=== PATIENT | female | born 1945 | race Caucasian/White ===

== ENCOUNTER 2020-03-12 10:00 | Outpatient (CLI) | payer MEDICARE, MEDICAID, SELFPAY ==
--- NOTE | 2020-03-12 10:17 | CT_ITS ---
WS: [id number] CT HEAD NONCONTRAST HISTORY: VISION CHANGES FREQUENT FALLS TECHNIQUE: Contiguous axial imaging performed through the brain in 2.5 mm imaging. Bone and soft tiss ue windows. All CT scans at [facility] use at least one of these dose optimization techniq ues: automated exposure control; mA and/or kV adjustment per patient size (includes targeted exams wh ere dose is matched to clinical indication); or iterative reconstruction. DLP: 1628.32 mGycm COMPARISON: 04/19/2019 No acute intracranial hemorrhage, midline shift or mass effect. No atrophy or prior infarcts or herniation. Mild chronic microvascular ischemic disease. Ventricles: Normal size with no hydrocephalus. Paranasal sinuses: As visualized are clear. Mastoid air cells: Well pneumatized. Calvarium and scalp: Hyperostosis frontalis interna. CT/CT head wo con* [id number] IMPRESSION: 1. No acute intracranial hemorrhage or edema. 2. Very mild chronic microvascular ischemic disease.
== END 2020-03-12 10:01 | disposition home or self-care (01) ==
LOC: RADWPI 10:05
PROVIDERS: Family Provider Family Medicine; PCP Family Medicine; Visit Provider Nurse Practitioner Family
DX: R29.6 Repeated falls (principal); I99.8 Other disorder of circulatory system; H53.9 Unspecified visual disturbance
CPT/HCPCS: 70450

== ENCOUNTER 2020-05-07 07:14 | Outpatient (CLI) | payer MEDICARE, MEDICAID, SELFPAY ==
[2020-05-07 07:33] VITALS: BMI 32.3
--- NOTE | 2020-05-07 07:33 | NMCV_ITS ---
NM pedro perf SPECT r/s* [id number] Lisa Loyd Age: 75 Gender: F : 1945 Exam Date: 05/07/2020 08:38 Ordering Phys: Carmina Mcmillan GRINDER Technologist: GUY Lewis Exam Location: [facility] Indications: DYSPNEA STRESS TEST Please see separate stress test report in [facility] for full findings IMAGE PROTOCOL Rest/Stress 1 Lexiscan Day Radiopharmaceutical Dose (mCi) Administration Site Administered by Rest: Tc-99m 10.7 IV GUY Olvera Sestamibi Stress:Tc-99m 32.4 IV GUY Lewis Sestamiguerline Rest: 07-May-2020 60 Discovery 630 Stress: 07-May-2020 30 Discovery 630 0.4mg Lexiscan. Supine position only as patient was unable to lay prone. SPECT RESULTS Technical Quality: Good Raw Data Analysis: Normal Image Corrections: No attenuation or motion correction applied Summed Stress Score: 0 Summed Rest Score: 4 Summed Difference Score: 0 PERFUSION FINDINGS Small sized perfusion abnormality of mild severity of apical lateral, mid inferior and mid inferolateral [place] on rest images with improved tracer uptake on stress images. This is suggestive of attenuation artifact. FUNCTIONAL RESULTS (calculated via Gated SPECT) Stress Image LV EF (%): 85 Stress EDV (mL):59 TID: 1.33 Stress ESV (mL):9 FUNCTIONAL FINDINGS: The left ventricle is normal in size. Transient Ischemia Dilatation of 1.3. There is hyperdynamic left ventricular systolic function. The left ventricular ejection fraction is hyperdynamic with a value of 85%. There is hyperdynamic left ventricular wall thickening. IMPRESSIONS 1. Myocardial perfusion imaging is normal. 2. The left ventricular ejection fraction is hyperdynamic with a value of 85%. No regional wall motion abnormality noted. 3. Transient ischemic dilation index of 1.3. This may be suggestive of hypertensive response/subendocardial ischemia. 4. No coronary ischemia based on the study. Ramona Lea MD (Electronically Signed) Final Date: 07 May 2020 17:58 S
--- NOTE | 2020-05-07 07:33 | ECG_ITS ---
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 Interpretive Statements NAME OF STUDY: LEXISCAN SESTAMIBI STRESS TEST INDICATION: Chest Pain, LEXISCAN STRESS TEST ORDERING PHYSICIAN: Unknown CLINICAL INFORMATION: Unknown INTERPRETATION: 1. The patient was brought to the laboratory where Lexiscan was infused over 20 seconds. The resting blood pressure was 136/54. Maximum blood pressure was 217/67. The resting heart rate was 77 beats per minute. The maximum heart rate is 106 beats per minute. 2. The baseline electrocardiogram reveals sinus rhythm with unusual R wave progression and low voltage. 3. With Lexiscan infusion, there were no ST segment changes to suggest ischemia. 4. The patient experienced no symptoms or arrhythmias during the examination. CONCLUSION: 1. Unremarkable Lexiscan infusion. 2. Nuclear imaging to follow. Electronically Signed On 05-07-2020 10:08:15 CDT by Niranjan Castaneda M.D. [email or web address]
[2020-05-07] MEDS: regadenoson 0.4 Mg/5 ml Syringe IVP (09:28)
[2020-05-07 09:32] VITALS: BP 182/72; PULSE 100
== END 2020-05-07 07:15 | disposition home or self-care (01) ==
LOC: CDL 07:14
PROVIDERS: PCP Family Medicine; Visit Provider Nurse Practitioner Family
DX: R06.09 Other forms of dyspnea (principal); R07.9 Chest pain, unspecified; R94.39 Abnormal result of other cardiovascular function study
CPT/HCPCS: 78452; 93017; A9500; J2785

== ENCOUNTER 2020-05-18 09:50 | Outpatient (CLI) | payer MEDICARE, MEDICAID, SELFPAY ==
--- NOTE | 2020-05-18 09:56 | USCV_ITS ---
Lisa Loyd Age: 75 Gender: F : 1945 Exam Date: 05/18/2020 10:17 Ordering Phys: Carmina McmillanP Technologist: Preet Mitchell [place] [facility] [place]: VISION CHANGES Risk Factors: Previous Vascular Surgery: Right Brachial BP: / Left Brachial BP: / Right Left Velocity (cm/s) Spectral Plaque Velocity (cm/s) Spectral Plaque Syst/Diast Broadening Syst/Diast Broadening 57.30/ 7.70 Prox CCA 58.50 / 13.60 51.30/ 11.10 Mid CCA 68.90 / 11.50 62.40/ 12.00 Distal CCA 68.90 / 6.30 67.00/ 19.70 Prox ICA 85.80 / 18.60 92.00/ 21.00 Mid ICA 127.20/ 28.60 62.60/ 16.40 Distal ICA 112.90/ 22.90 117.00 ECA 144.40 1.48 ICA/CCA 1.85 Antegrade Vertebral Antegrade 50.10/ 10.60 cm/s 67.20/ 15.70 cm/s Tri Subclavian Tri 81.00 100.0 0 CONCLUSIONS Right ICA stenosis <50%. Left ICA stenosis <50%. Normal antegrade Doppler flow noted in the right vertebral artery. Normal antegrade Doppler flow noted in the left vertebral artery. Tadeo Oropeza MD (Electronically Signed) Final Date: 18 May 2020 16:44 S
== END 2020-05-18 09:51 | disposition home or self-care (01) ==
LOC: RAD 09:52
PROVIDERS: PCP Family Medicine; Visit Provider Nurse Practitioner Family
DX: H53.9 Unspecified visual disturbance (principal); R29.6 Repeated falls; E78.2 Mixed hyperlipidemia; I10 Essential (primary) hypertension; I65.23 Occlusion and stenosis of bilateral carotid arteries
CPT/HCPCS: 93880

== ENCOUNTER 2020-06-24 12:00 | Outpatient (CLI) | payer MEDICARE, MEDICAID, SELFPAY | END 2020-06-24 12:01 | disposition home or self-care (01) | LOC: SLEEP 06-25 15:27 | PROVIDERS: PCP Family Medicine; Visit Provider Nurse Practitioner Family | DX: G47.10 Hypersomnia, unspecified (principal) | CPT/HCPCS: G0399 ==

== ENCOUNTER → 2020-07-02 15:28 | Outpatient (BNVA) | payer MEDICARE, MEDICAID, SELFPAY | PROVIDERS: PCP Family Medicine; Visit Provider Family Medicine | DX: J44.9 Chronic obstructive pulmonary disease, unspecified (principal); Z68.34 Body mass index [BMI] 34.0-34.9, adult; F17.211 Nicotine dependence, cigarettes, in remission | CPT/HCPCS: 71046 ==

== ENCOUNTER → 2020-07-23 12:05 | Outpatient (BNVA) | payer MEDICARE, MEDICAID, SELFPAY | PROVIDERS: PCP Family Medicine; Visit Provider Nurse Practitioner Family | DX: E11.9 Type 2 diabetes mellitus without complications (principal); J44.9 Chronic obstructive pulmonary disease, unspecified; E78.5 Hyperlipidemia, unspecified; I10 Essential (primary) hypertension; E87.1 Hypo-osmolality and hyponatremia; F41.9 Anxiety disorder, unspecified | CPT/HCPCS: 80053; 80061; 82043; 83036; 85025; 87086 ==

== ENCOUNTER → 2020-08-17 10:52 | Outpatient (BNVA) | payer MEDICARE, MEDICAID, SELFPAY | PROVIDERS: PCP Family Medicine; Visit Provider Family Medicine | DX: E87.1 Hypo-osmolality and hyponatremia (principal) | CPT/HCPCS: 80048 ==

== ENCOUNTER → 2020-08-19 11:47 | Outpatient (BNVA) | payer MEDICARE, MEDICAID, SELFPAY | PROVIDERS: PCP Family Medicine; Visit Provider Family Medicine | DX: R30.0 Dysuria (principal) | CPT/HCPCS: 81000; 87086 ==

== ENCOUNTER → 2020-08-27 11:10 | Outpatient (BNVA) | payer MEDICARE, MEDICAID, SELFPAY | PROVIDERS: PCP Family Medicine; Visit Provider Nurse Practitioner Family | DX: E87.5 Hyperkalemia (principal); J44.9 Chronic obstructive pulmonary disease, unspecified; E55.9 Vitamin D deficiency, unspecified; R30.0 Dysuria | CPT/HCPCS: 80048; 81000; 82306; 87086; 87635 ==

== ENCOUNTER 2020-08-31 09:52 | Outpatient (CLI) | payer MEDICARE, MEDICAID, SELFPAY ==
--- NOTE | 2020-08-31 10:27 | CT_ITS ---
WS: [id number] LDCT LUNG CANCER SCREENING HISTORY: HX OF TOBACCO USE TECHNIQUE: Axial imaging performed from the apices to 1 cm below the costophrenic angles. Coronal and sagittal reformats are submitted with axial MIP series. All CT scans at [facility] use at least one of these dose optimization techniques: automated exposure control; mA and/or kV adjustment per patient size (includes targeted exams where dose is matched to clinical indication); or iterativ e reconstruction. DLP: 50.53 mGy.cm DIvol: 1.51 mGy COMPARISON: None available. Diagnostic quality: Limited by body habitus. Lung Nodules: Benign granuloma at the lingula. No pulmonary nodules or endobronchial lesions. Lungs: Mild hyperexpansion. Quality of examination is limited by body habitus. Heart: Normal size heart. Mild atherosclerosis [place] coronary arteries. Other findings: Normal pulmonary artery. Mild atherosclerosis aorta. CT/CT lung screening [id number] IMPRESSION: LUNG-RADS: 1-Negative FOLLOW UP: 12 Month: Continue annual screening with LDCT OTHER FINDINGS (S MODIFIER): None.
[2020-08-31 10:53] VITALS: BP 163/79; BP 166/77
--- NOTE | 2020-08-31 10:57 | PFTS_ITS ---
Date of Study:08/31/20 Date of Dictation: MECHANICS: Forced vital capacity (FVC) is normal. Forced expiratory volume in one second (FEV1) is normal. FEV1/FVC is normal. FLOW VOLUME LOOP: Mild scooping. LUNG VOLUMES: Total lung capacity (TLC) is normal. Residual volume (RV) is increased. DIFFUSING CAPACITY FOR CARBON MONOXIDE: Normal. INTERPRETATION: The spirometry is normal. Lung volumes are consistent with mild air trapping. Gas exchange (DLCO) is normal. MTDD
== END 2020-08-31 09:53 | disposition home or self-care (01) ==
PROVIDERS: PCP Family Medicine; Visit Provider Internal Medicine Pulmonary Disease
DX: Z12.2 Encounter for screening for malignant neoplasm of respiratory organs (principal); Z87.891 Personal history of nicotine dependence; J44.9 Chronic obstructive pulmonary disease, unspecified; I70.0 Atherosclerosis of aorta
CPT/HCPCS: 94010; 94618; 94726; 94729; G0297

== ENCOUNTER → 2020-09-15 10:30 | Outpatient (BNVA) | payer MEDICARE, MEDICAID, SELFPAY | PROVIDERS: PCP Family Medicine; Visit Provider Family Medicine | DX: E87.1 Hypo-osmolality and hyponatremia (principal); E55.9 Vitamin D deficiency, unspecified; E87.5 Hyperkalemia | CPT/HCPCS: 80048; 82306 ==

== ENCOUNTER → 2020-09-29 11:22 | Outpatient (BNVA) | payer MEDICARE, MEDICAID, SELFPAY | PROVIDERS: PCP Family Medicine; Visit Provider Family Medicine | DX: R30.0 Dysuria (principal); E87.1 Hypo-osmolality and hyponatremia; I10 Essential (primary) hypertension | CPT/HCPCS: 80053; 81000 ==

== ENCOUNTER → 2021-01-13 12:18 | Outpatient (BNVA) | payer MEDICARE, MEDICAID, SELFPAY | PROVIDERS: PCP Family Medicine; Visit Provider Family Medicine | DX: E11.65 Type 2 diabetes mellitus with hyperglycemia (principal); I10 Essential (primary) hypertension; E55.9 Vitamin D deficiency, unspecified | CPT/HCPCS: 80053; 80061; 82306; 83036; 85025 ==

== ENCOUNTER → 2021-02-10 11:52 | Outpatient (BNVA) | payer MEDICARE, MEDICAID, SELFPAY | PROVIDERS: PCP Family Medicine; Visit Provider Nurse Practitioner Family | DX: Z20.828 Contact with and (suspected) exposure to other viral communicable diseases (principal); R06.02 Shortness of breath; I10 Essential (primary) hypertension; J44.9 Chronic obstructive pulmonary disease, unspecified | CPT/HCPCS: 82785; 85025; 86003; 87635 ==

== ENCOUNTER → 2021-05-11 16:23 | Outpatient (BNVA) | payer MEDICARE, MEDICAID, SELFPAY | PROVIDERS: PCP Family Medicine; Visit Provider Nurse Practitioner Family | DX: R30.0 Dysuria (principal); L01.00 Impetigo, unspecified | CPT/HCPCS: 80053; 81003; 85025 ==

== ENCOUNTER → 2021-06-30 11:15 | Outpatient (BNVA) | payer MEDICARE, MEDICAID, SELFPAY | PROVIDERS: PCP Family Medicine; Visit Provider Family Medicine | DX: E11.65 Type 2 diabetes mellitus with hyperglycemia (principal); I10 Essential (primary) hypertension; E78.2 Mixed hyperlipidemia; J44.9 Chronic obstructive pulmonary disease, unspecified | CPT/HCPCS: 80053; 80061; 83036; 84443; 85025 ==

== ENCOUNTER 2021-07-01 11:05 | Outpatient (CLI) | payer MEDICARE, MEDICAID, SELFPAY ==
[2021-07-01 12:41] LABS: HIV 1 & 2 Antibody Non-Reactive (Non-Reactiv); HIV 1 & 2 Antigen Non-Reactive (Non-Reactiv)
[2021-07-01 12:56] LABS: Hepatitis A Antibody IgM Non-Reactive (Nonreactive); Hepatitis B Core AB, Total Non-Reactive (Nonreactive); Hepatitis B Surface AB 3.5 (11.5-1000); Hepatitis B Surface Antigen Non-Reactive (Nonreactive); Hepatitis C Virus Antibody Non-Reactive (Nonreactive)
[2021-07-03 16:12] LABS: Quantiferon Mitogen 8.05 IU/mL; Quantiferon Nil 0.04 IU/mL; Quantiferon TB Gold NEGATIVE (NEGATIVE)
== END 2021-07-01 11:06 | disposition home or self-care (01) ==
PROVIDERS: PCP Family Medicine; Visit Provider Dermatology
DX: L40.50 Arthropathic psoriasis, unspecified (principal); L40.0 Psoriasis vulgaris; Z79.899 Other long term (current) drug therapy
CPT/HCPCS: 36415; 86480; 86705; 86706; 86709; 86803; 87340; 87806

== ENCOUNTER 2021-08-23 12:49 | Outpatient (CLI) | payer MEDICARE, MEDICAID, SELFPAY ==
--- NOTE | 2021-08-23 13:00 | CT_ITS ---
WS: [id number] LDCT LUNG CANCER SCREENING HISTORY: Z12.2 - Encounter for screening for malignant neoplasm TECHNIQUE: Axial imaging performed from the apices to 1 cm below the costophrenic angles. Coronal and sagittal reformats are submitted with axial MIP series. All CT scans at [facility] use at least one of these dose optimization techniques: automated exposure control; mA and/or kV adjustment per patient size (includes targeted exams where dose is matched to clinical indication); or iterativ e reconstruction. DLP: 46.67 mGy.cm DIvol: 1.58 mGy COMPARISON: 08/31/2020 Diagnostic quality: Satisfactory Lung Nodules: No pulmonary nodule or mass. There is a benign calcified granuloma which is stable at t he lingula. No endobronchial lesions. Lungs: Hyperexpanded lungs from emphysema. Heart: Normal size heart. Mild atherosclerosis coronary arteries. Other findings: Normal size pulmonary artery. Mild atherosclerosis aorta. CT/CT lung screening [id number] IMPRESSION: LUNG-RADS: 1-Negative FOLLOW UP: 12 Month: Continue annual screening with LDCT OTHER FINDINGS (S MODIFIER): None.
== END 2021-08-23 12:50 | disposition home or self-care (01) ==
LOC: CT 12:50
PROVIDERS: PCP Family Medicine; Visit Provider Internal Medicine Pulmonary Disease
DX: Z12.2 Encounter for screening for malignant neoplasm of respiratory organs (principal); I70.0 Atherosclerosis of aorta; I25.10 Atherosclerotic heart disease of native coronary artery without angina pectoris
CPT/HCPCS: 71271

== ENCOUNTER → 2021-10-25 12:06 | Outpatient (BNVA) | payer MEDICARE, MEDICAID, SELFPAY | PROVIDERS: PCP Family Medicine; Visit Provider Family Medicine | DX: E11.65 Type 2 diabetes mellitus with hyperglycemia (principal); E78.2 Mixed hyperlipidemia; I10 Essential (primary) hypertension; J44.9 Chronic obstructive pulmonary disease, unspecified | CPT/HCPCS: 80053; 80061; 83036; 84443; 85025 ==

== ENCOUNTER 2021-11-29 00:34 | Emergency (ER) | payer MEDICARE, MEDICAID, SELFPAY ==
[2021-11-29 00:38] VITALS: BP 183/68; PULSE 85; RESP 18; TEMP 36.4; O2SAT 98; BMI 32.3
[2021-11-29 01:38] VITALS: BP 151/62; PULSE 74; O2SAT 96
[2021-11-29 02:45] LABS: Add Urine Microscopic? NO; Basophils # 0.1 10^3/uL (0.0-0.1); Basophils % 0.7 %; Charge for UA Resulting for Rev; Eosinophils # 0.3 10^3/uL (0.0-0.8); Eosinophils % 3.2 %; Hematocrit 34.9 % (37.0-47.0); Hemoglobin 11.3 g/dL (11.5-15.3); Lymphocytes # 1.5 10^3/uL (0.8-4.8); Lymphocytes % 14.2 %; Mean Corpuscular HGB Conc 32.4 g/dL (30.0-36.0); Mean Corpuscular Hemoglobin 26.6 pg (28.0-34.0); Mean Corpuscular Volume 82.1 fl (81-99); Mean Platelet Volume 9.6 fL (7.4-10.4); Monocytes # 0.9 10^3/uL (0.2-0.9); Neutrophils # 7.47 10^3/uL (1.8-7.7); Neutrophils % 72.1 %; Nucleated Red Blood Cells % 0 %; Platelet Count 299 10^3/cmm (130-400); Red Blood Count 4.25 10^6/uL (4.1-5.3); White Blood Count 10.4 10^3/uL (4.0-10.0)
[2021-11-29 02:48] LABS: Bilirubin Urine Neg (Negative); Blood Urine Neg (Negative); Glucose Urine UA Norm (Normal); Ketones Urine Negative (Negative); Leukocyte Esterase Urine Negative (Negative); Nitrate Urine Negative (Negative); Protein Urine Neg (Negative); Specific Gravity, Urine 1.005 (1.005-1.030); Urine Appearance Clear (CLEAR); Urine Color Yellow (Yellow); Urobilinogen Urine Norm (Negative); pH Urine 6.5 (5-7)
[2021-11-29] MEDS: sodium chloride 0.9% 500 ML IV (02:48)
--- NOTE | 2021-11-29 02:51 | ED_ITS ---
HPI - General Adult General: Chief complaint: General Medical Stated complaint: BP AND BS Time Seen by Provider: 11/29/21 00:50 History of Present Illness: HPI narrative: 76-year-old female presenting with several symptoms. She noticed that she was chilled and shaking, felt nauseated, her blood pressure was high, she was dizzy at home. This worried her, so she called the ambulance. Most of the symptoms have since resolved, although she still nauseated. She never complained of chest pain or significant shortness of breath. She does have a history of COPD. She does not believe she had a fever necessarily. No sick contacts. Onset (ago): hour(s) Radiation: non-radiation Severity: mild Quality: other Exacerbating factors: none Associated symptoms: Reports decreased appetite, fevers/chills, nausea and weakness (Generalized); Deny chest pain, confusion, cough, diaphoresis, dyspnea, rash, short of breath or vomiting Review of Systems Const: Reports: chills; Denies: fever(s) or diaphoresis Card: Denies: chest pain Resp: Denies: dyspnea GI: Reports: nausea; Denies: vomiting Skin/Breast: Denies: rash Neuro: Denies: confusion PFSH ED PFSH: Medical History Anxiety and depression Bipolar 1 disorder HTN (hypertension) Hx of acute respiratory failure Hypertension Hyponatremia Osteopenia Panic attacks Psoriatic arthritis Surgical History Hx of carpal tunnel repair Hx of cataract extraction Hx of cholecystectomy Hx of hysterectomy Family History Family/Other Cancer CAD (coronary artery disease) Denies family history of Clotting disorder Anesthesia complication Bleeding disorder Social History Quit status (tobacco): has quit using tobacco Year quit tobacco: 2009 Former quit date comment: 1.5 PPD x 46 yrs Second hand smoke exposure: No Smoking risk assessment/counseling performed?: No Alcohol intake: never Caregiver/support person: Yes Lives independently: Yes Household members: none Marital status: Current occupational status: disabled Pets and animals: No History of recent travel: No Current gender identity: Female Physical Exam Const: COMMON NORMALS: no acute distress GENERAL APPEARANCE: cooperative HENMT: COMMON NORMALS: normocephalic and atraumatic HEAD & SCALP: normocephalic and atraumatic Eye: COMMON NORMALS: Equal, round and reactive pupils present and EOMs intact bilaterally PUPIL: Yes Equal, round and reactive pupils present Chest: COMMONS NORMALS: normal inspection of the chest Resp: COMMON NORMALS: normal respiratory effort, No use of accessory muscles and clear to auscultation bilaterally AUSCULTATION: clear to auscultation bilaterally Cardio: COMMON NORMALS: regular rate and regular rhythm RATE: regular rate RHYTHM: regular rhythm GI: COMMON NORMALS: Normal to inspection, nondistended, normoactive bowel sounds present, Soft to palpation and non-tender PALPATION: Yes Soft to palpation Extremity: COMMON NORMALS: no pedal edema Neuro: WAYLON COMA SCALE: document GCS findings Waylon coma scale eye opening: Spontaneous Waylon coma scale verbal response: Orientated Waylon coma scale motor response: Obey commands [place] coma scale total score: 15 COMMON NORMALS: moves all extremities and no focal motor deficits Course Vital Signs: Vital signs: Vital Signs Temperature 97.6 F 11/29/21 00:38 Pulse Rate 74 11/29/21 01:38 Respiratory Rate 18 11/29/21 00:38 Blood Pressure 167/86 11/29/21 03:11 Pulse Oximetry 96 11/29/21 01:38 MDM - General Adult MDM Narrative: Medical decision making narrative: Sodium mildly low prior to IV fluid infusion. Hemoglobin is 11. White blood cell count is 10. Creatinine is 0.9. She is feeling improved. Her blood pressure was moderately high. Improved after labetalol. Currently 144/77. PCR swabs for flu and COVID-19 are in the lab. We will call her with results if positive. She will be allowed discharge. Lab Data: Labs: Lab Results 11/29/21 11/29/21 11/29/21 02:30 02:30 02:30 WBC 10.4 10^3/uL H 10 ^3/uL (4.0-10.0) RBC 4.25 10^6/uL 10^6 /uL (4.1-5.3) Hgb 11.3 g/dL L g/dL (11.5-15.3) Hct 34.9 % L % (37.0-47.0) MCV 82.1 fl fl (81-99) MCH 26.6 pg L pg (28.0-34.0) MCHC 32.4 g/dL g/dL (30.0-36.0) RDW 13.0 % % (12.1-15.1) Plt Count 299 10^3/cmm 10^3 /cmm (130-400) MPV 9.6 fL fL (7.4-10.4) Neut % (Auto) 72.1 % % Lymph % (Auto) 14.2 % % Wayne % (Auto) 9.0 % % Eos % (Auto) 3.2 % % Baso % (Auto) 0.7 % % Neut # (Auto) 7.47 10^3/uL 10^3 /uL (1.8-7.7) Lymph # (Auto) 1.5 10^3/uL 10^3/ uL (0.8-4.8) Wayne # (Auto) 0.9 10^3/uL 10^3/ uL (0.2-0.9) Eos # (Auto) 0.3 10^3/uL 10^3/ uL (0.0-0.8) Baso # (Auto) 0.1 10^3/uL 10^3/ uL (0.0-0.1) Nucleated RBC % (a uto) 0 % % Nucleated RBCs # 0.0 /100WBC /100W BC Sodium 128 mmol/L L mmol /L (136-145) Potassium 4.2 mmol/L mmol/L (3.5-5.1) Chloride 90 mmol/L L mmol/ L (98-107) Carbon Dioxide 22 mmol/L mmol/L (22-29) Anion Gap 20.2 H (5-19) BUN 17 mg/dL mg/dL (8-23) Creatinine 0.9 mg/dL mg/dL (0.5-0.9) GFR Calculation Not Reportable Glucose 172 mg/dL H mg/dL (65-115) Calculated Osmolal ity 272 mOsm/kg L mOs m/kg (285-295) Calcium 9.5 mg/dL mg/dL (8.5-10.5) Total Bilirubin 0.2 mg/dL mg/dL (0.15-1.2) AST 12 U/L U/L (0-32) ALT 15 U/L U/L (0-33) Alkaline Phosphata se 62 IU/L IU/L (35-105) C-Reactive Protein 9.3 mg/L H mg/L (0.0-4.9) Total Protein 6.4 g/dL L g/dL (6.6-8.7) Albumin 3.9 g/dL g/dL (3.5-5.2) Globulin 2.5 g/dL g/dL (1.3-4.6) Urine Color Yellow (Yellow) Urine Appearance Clear (CLEAR) Urine pH 6.5 (5-7) Ur Specific Gravit y 1.005 (1.005-1.030) Urine Protein Neg (Negative) Urine Glucose (UA) Norm (Normal) Urine Ketones Negative (Negative) Urine Blood Neg (Negative) Urine Nitrate Negative (Negative) Urine Bilirubin Neg (Negative) Urine Urobilinogen Norm mg/dL mg/dL (Negative) Ur Leukocyte Carly ase Negative (Negative) Discharge Plan Discharge Patient Disposition: Home Clinical Impression: Hypertension Qualifiers: Hypertension type: unspecified Qualified Code(s): I10 - Essential (primary) hypertension Condition: Stable Prescriptions: No Action vitamin A-vit C-vit E-zinc-Cu Tablet 2 tab PO BID RF: 0 Taltz Autoinjector (3 Pack) 80 mg/mL auto-injector 80 mg SUBCUT .q 2 weeks Qty: 3 RF: 3 Taltz Autoinjector (3 Pack) 80 mg/mL auto-injector 80 mg SUBCUT .q 4 weeks Qty: 3 RF: 1 losartan-hydrochlorothiazide 100-25 mg tablet 1 tab PO DAILY Qty: 30 RF: 5 cetirizine [Zyrtec] 10 mg tablet 10 mg PO DAILY PRN (Reason: allergy symptoms) Qty: 30 RF: 3 clonazepam 0.5 mg tablet 0.5 mg PO BID Qty: 60 RF: 3 doxepin 50 mg capsule See Rx Instructions .ROUTE .COMPLEX Qty: 30 RF: 2 glipizide 10 mg tablet See Rx Instructions .ROUTE .COMPLEX Qty: 60 RF: 3 levalbuterol tartrate [Xopenex HFA] 45 mcg/actuation HFA aerosol inhaler 2 inh inhalation Q6H Qty: 15 RF: 3 ondansetron HCl [Zofran] 4 mg tablet 4 mg PO Q6H PRN (Reason: nausea and vomiting) Qty: 20 RF: 0 rosuvastatin [Crestor] 10 mg tablet 10 mg PO DAILY Qty: 30 RF: 4 metformin 850 mg tablet 850 mg PO BID Qty: 60 RF: 3 lamotrigine 100 mg tablet See Rx Instructions .ROUTE .COMPLEX Qty: 30 RF: 5 (DME) True Metrix Glucose Test Strip Strip See Rx Instructions .Route Qty: 100 RF: 5 (DME) blood sugar diagnostic Strip See Rx Instructions .Route Qty: 100 RF: 2 Discharge Orders: Discharge ED (Routine); Ordered 11/29/21 Ordered By: Holger Bear Referrals: Penny Murray MD [Primary Care Provider] - 1-3 days Patient Instructions: Hypertension (ED) Activity Restrictions/Additional Instructions: Return for any to return of your symptoms such as chills/shaking, etc. Return also for fever, shortness of breath, chest discomfort, syncope or passing out, any other concerning symptoms. watch your temperature closely for the next 24 hours to 48 hours. Your flu and COVID-19 panel is pending at this point. We will call you if any of these tests are positive with special instructions. Watch your blood pressure closely (twice daily) for the next 2 days. Report numbers to your physician. Coding Level of Care Code ED Community Health Nurse Supervisor for Benito Fwtanner Exam Comprehensive
[2021-11-29 03:01] LABS: Alanine Aminotransferase 15 U/L (0-33); Albumin Level 3.9 g/dL (3.5-5.2); Alkaline Phosphatase 62 IU/L (35-105); Anion Gap 20.2 (5-19); Aspartate Amino Transferase 12 U/L (0-32); Blood Urea Nitrogen 17 mg/dL (8-23); C Reactive Protein 9.3 mg/L (0.0-4.9); Calcium 9.5 mg/dL (8.5-10.5); Carbon Dioxide 22 mmol/L (22-29); Chloride 90 mmol/L (98-107); Globulin 2.5 g/dL (1.3-4.6); Glucose 172 mg/dL (65-115); Osmolality Calculated 272 mOsm/kg (285-295); Potassium 4.2 mmol/L (3.5-5.1); Sodium 128 mmol/L (136-145); Total Bilirubin 0.2 mg/dL (0.15-1.2); Total Protein 6.4 g/dL (6.6-8.7)
[2021-11-29 03:11] VITALS: BP 167/86
[2021-11-29] MEDS: ondansetron 2 mg/ML SDV 2 mL 4 MG IVP (03:11)
[2021-11-29] MEDS: labetalol 5 mg/mL SDV 20mL 10 MG IVP (03:48)
[2021-11-29 04:26] VITALS: BP 144/77; PULSE 80; RESP 18; O2SAT 96
[2021-11-29 04:30] LABS: Adenovirus Not Detected (NOT DETECT); Chlamydia Pneumoniae Not Detected (NOT DETECT); Coronavirus 229E,HKU1,NL63,OC4 Not Detected (NOT DETECT); Human Metapneumovirus Not Detected (NOT DETECT); Human Rhinovirus/Enterovirus Not Detected (NOT DETECT); Influenza A Not Detected (NOT DETECT); Influenza A H1 Not Detected (NOT DETECT); Influenza A H1-2009 Not Detected (NOT DETECT); Influenza A H3 Not Detected (NOT DETECT); Influenza B Not Detected (NOT DETECT); Mycoplasma Pneumoniae Not Detected (NOT DETECT); Parainfluenza Virus Type 1 Not Detected (NOT DETECT); Parainfluenza Virus Type 2 Not Detected (NOT DETECT); Parainfluenza Virus Type 3 Not Detected (NOT DETECT); Parainfluenza Virus Type 4 Not Detected (NOT DETECT); Respiratory Syncytial Virus A Not Detected (NOT DETECT); Respiratory Syncytial Virus B Not Detected (NOT DETECT); SARS-COV-2 Not Detected (NOT DETECT)
== END 2021-11-29 04:28 | disposition home or self-care (01) ==
PROVIDERS: Emergency Provider Emergency Medicine; PCP Family Medicine
DX: I10 Essential (primary) hypertension (principal); Z79.84 Long term (current) use of oral hypoglycemic drugs; Z87.891 Personal history of nicotine dependence; Z20.822 Contact with and (suspected) exposure to COVID-19
CPT/HCPCS: 80053; 81003; 85025; 86140; 87486; 87581; 87633; 96361; 96374; 96375; 99284; J2405; J3490; J7040

== ENCOUNTER 2021-11-29 10:40 | Emergency (ER) | payer MEDICARE, MEDICAID, SELFPAY ==
[2021-11-29 11:27] VITALS: BP 145/69; PULSE 77; RESP 15; TEMP 36.5; O2SAT 98; BMI 32.3
--- NOTE | 2021-11-29 11:57 | CT_ITS ---
WS: [id number] CT HEAD TECHNIQUE: Noncontrast CT of the head obtained from the skullbase to the vertex. CLINICAL INFORMATION: elevated BP/headache COMPARISON: March 12, 2020 DLP: 858.[address] scans at [facility] use at least one of these dose optimization techniques: automated e xposure control; mA and/or kV adjustment per patient size (includes targeted exams where dose is matc hed to clinical indication); or iterative reconstruction. FINDINGS: No evidence of intracranial hemorrhage or mass effect. Ventricular system and basal cisterns are webb nt. Mild small vessel changes with mild parenchymal volume loss. No extra-axial fluid collections. No evidence of mass or mass effect. Normal baker-white differentiation. Paranasal sinuses and mastoid air cells are well aerated. .Normal visualized soft tissues. CT/CT head wo con* [id number] IMPRESSION: 1. No evidence of intracranial hemorrhage or mass effect. 2. Mild small vessel changes. Mild parenchymal volume loss. 3. No acute intracranial findings.
--- NOTE | 2021-11-29 12:12 | W.ED.HA ---
HPI - Headache General: Chief Complaint: Headache Stated Complaint: HYPERTENSION, HEADACHE Time Seen by Provider: 11/29/21 11:43 History of Present Illness: HPI Narrative: 76 year old female presents to ER due to headache and HTN. Patient was in ER earlier this morning for headache and HTN. Her BP was in the 180s earlier this morning when she presented to ER. Given Labetalol in the ER which lowered her BP. Patient reports her blood pressure was in the 160s this morning and her headache was coming back. Reports she takes her BP medicine in the morning and she hasn't taken any yet. Reports her headache starts in her forehead and spreads to cover her entire head. Denies chest pain and nausea. MD elicited complaint: headache Onset (ago): hour(s) Location: frontal and generalized Associated symptoms: Deny chest pain, cough, diaphoresis, loss of vision, nausea, numbness, rash, short of breath or vomiting Review of Systems Const: Denies: diaphoresis ENMT: Denies: throat pain, nasal discharge or nasal congestion Card: Denies: chest pain Resp: Denies: dyspnea or productive cough GI: Denies: nausea or vomiting : Denies: flank pain, difficulty voiding, dysuria, urinary frequency or urinary urgency Skin/Breast: Denies: rash or pruritus PFSH ED PFSH: Medical History Anxiety and depression Bipolar 1 disorder HTN (hypertension) Hx of acute respiratory failure Hypertension Hyponatremia Osteopenia Panic attacks Psoriatic arthritis Surgical History Hx of carpal tunnel repair Hx of cataract extraction Hx of cholecystectomy Hx of hysterectomy Family History Family/Other Cancer CAD (coronary artery disease) Denies family history of Clotting disorder Anesthesia complication Bleeding disorder Social History Quit status (tobacco): has quit using tobacco Year quit tobacco: 2009 Former quit date comment: 1.5 PPD x 46 yrs Second hand smoke exposure: No Smoking risk assessment/counseling performed?: No Alcohol intake: never Caregiver/support person: Yes Lives independently: Yes Household members: none Marital status: Current occupational status: disabled Pets and animals: No History of recent travel: No Current gender identity: Female Physical Exam Const: COMMON NORMALS: no acute distress GENERAL APPEARANCE: cooperative and comfortable ORIENTATION/CONSCIOUSNESS: Yes awake, Yes oriented to person, Yes oriented to place and Yes oriented to time HENMT: COMMON NORMALS: normocephalic, atraumatic, hearing grossly normal bilaterally, external ears normal and EAC's normal HEAD & SCALP: normocephalic and atraumatic EXTERNAL EAR: Yes external ears normal EXTERNAL AUDITORY CANAL: EAC's normal Eye: COMMON NORMALS: Equal, round and reactive pupils present, EOMs intact bilaterally, conjunctivae normal and no scleral icterus CONJUNCTIVA: Yes conjunctivae normal PUPIL: Yes Equal, round and reactive pupils present Neck/C-Spine: COMMON NORMALS: full ROM, supple and no JVD Resp: COMMON NORMALS: normal respiratory effort, No retractions, No use of accessory muscles and clear to auscultation bilaterally AUSCULTATION: clear to auscultation bilaterally Cardio: COMMON NORMALS: no JVD, regular rate, regular rhythm and No murmurs present (Cardio) RATE: regular rate RHYTHM: regular rhythm GI: COMMON NORMALS: Soft to palpation and No hepatosplenomegaly present AUSCULTATION: Yes normoactive bowel sounds PALPATION: Yes Soft to palpation, No Tenderness to palpation present (GI), No Guarding due to palpation present (GI) and Yes No hepatosplenomegaly present Extremity: COMMON NORMALS: normal to inspection and capillary refill normal Neuro: SENSORIUM/ORIENTATION: Yes oriented to person, Yes oriented to place and Yes oriented to time Skin: COMMON NORMALS: no rashes or lesions noted GENERAL SKIN EXAM: no rashes or lesions noted Course Vital Signs: Vital signs: Vital Signs Temperature 97.7 F 11/29/21 11:27 Pulse Rate 71 11/29/21 13:42 Respiratory Rate 16 11/29/21 13:42 Blood Pressure 146/70 11/29/21 13:42 Pulse Oximetry 96 11/29/21 13:42 MDM - Headache MDM Narrative: Medical decision making narrative: Headache has improved. Continue current medications with no changes. She did have some mild hyponatremia but it has been similar levels in the past. She is concerned about her blood pressure however at this time her blood pressure is well controlled I am concerned about adding anything to it and actually making her hypotensive recommend she continue to home monitoring and follow-up with her primary care doctor. Lab Data: Labs: Lab Results 11/29/21 12:55 POC Glucose 92 mg/dL mg/dL (70-110) Discharge Plan Discharge Patient Disposition: Home Clinical Impression: Hypertension, Hyponatremia, Type 2 diabetes mellitus Condition: Stable Prescriptions: No Action vitamin A-vit C-vit E-zinc-Cu Tablet 2 tab PO BID RF: 0 Taltz Autoinjector (3 Pack) 80 mg/mL auto-injector 80 mg SUBCUT .q 2 weeks Qty: 3 RF: 3 Taltz Autoinjector (3 Pack) 80 mg/mL auto-injector 80 mg SUBCUT .q 4 weeks Qty: 3 RF: 1 losartan-hydrochlorothiazide 100-25 mg tablet 1 tab PO DAILY Qty: 30 RF: 5 cetirizine [Zyrtec] 10 mg tablet 10 mg PO DAILY PRN (Reason: allergy symptoms) Qty: 30 RF: 3 clonazepam 0.5 mg tablet 0.5 mg PO BID Qty: 60 RF: 3 doxepin 50 mg capsule See Rx Instructions .ROUTE .COMPLEX Qty: 30 RF: 2 glipizide 10 mg tablet See Rx Instructions .ROUTE .COMPLEX Qty: 60 RF: 3 levalbuterol tartrate [Xopenex HFA] 45 mcg/actuation HFA aerosol inhaler 2 inh inhalation Q6H Qty: 15 RF: 3 ondansetron HCl [Zofran] 4 mg tablet 4 mg PO Q6H PRN (Reason: nausea and vomiting) Qty: 20 RF: 0 rosuvastatin [Crestor] 10 mg tablet 10 mg PO DAILY Qty: 30 RF: 4 metformin 850 mg tablet 850 mg PO BID Qty: 60 RF: 3 lamotrigine 100 mg tablet See Rx Instructions .ROUTE .COMPLEX Qty: 30 RF: 5 (DME) True Metrix Glucose Test Strip Strip See Rx Instructions .Route Qty: 100 RF: 5 (DME) blood sugar diagnostic Strip See Rx Instructions .Route Qty: 100 RF: 2 Discharge Orders: Discharge ED (Routine); Ordered 11/29/21 Ordered By: Joe Marques Referrals: Penny Murray MD [Primary Care Provider] - Discharge Diet: Usual diet Discharge Activity: Resume usual activity Patient Instructions: Opioid Safety Activity Restrictions/Additional Instructions: Follow-up with your primary care doctor within the next week. Continue medications as previously prescribed. Coding Level of Care Code ED Certified Pharmacist Assistant for Chg Fwd Exam Comprehensive
[2021-11-29] MEDS: ketorolac 30 mg/mL INJ IM (12:23)
[2021-11-29] MEDS: promethazine 25 mg/mL SDV 1 mL IM (12:28)
[2021-11-29 12:57] LABS: Glucose Point of Care 92 mg/dL (70-110)
[2021-11-29 13:42] VITALS: BP 146/70; PULSE 71; RESP 16; O2SAT 96
== END 2021-11-29 13:43 | disposition home or self-care (01) ==
PROVIDERS: Emergency Provider Family Medicine; PCP Family Medicine
DX: I10 Essential (primary) hypertension (principal); E11.9 Type 2 diabetes mellitus without complications; E87.1 Hypo-osmolality and hyponatremia; Z79.84 Long term (current) use of oral hypoglycemic drugs; Z87.891 Personal history of nicotine dependence; Z20.822 Contact with and (suspected) exposure to COVID-19
CPT/HCPCS: 36416; 70450; 80053; 81003; 82962; 85025; 86140; 87486; 87581; 87633; 96361; 96372; 96374; 96375; 99283; 99284; J1885; J2405; J2550; J3490; J7040

== ENCOUNTER → 2021-12-21 12:41 | Outpatient (BNVA) | payer MEDICARE, MEDICAID, SELFPAY | PROVIDERS: PCP Family Medicine; Visit Provider Family Medicine | DX: I10 Essential (primary) hypertension (principal); E87.1 Hypo-osmolality and hyponatremia | CPT/HCPCS: 80048 ==

== ENCOUNTER → 2022-01-18 16:04 | Outpatient (BNVA) | payer MEDICARE, MEDICAID, SELFPAY | PROVIDERS: PCP Family Medicine; Visit Provider Nurse Practitioner Family | DX: R30.0 Dysuria (principal); J02.9 Acute pharyngitis, unspecified; E87.1 Hypo-osmolality and hyponatremia | CPT/HCPCS: 80048; 81003; 87071; 87880 ==

== ENCOUNTER → 2022-02-24 11:24 | Outpatient (BNVA) | payer MEDICARE, MEDICAID, SELFPAY | PROVIDERS: PCP Family Medicine; Visit Provider Dermatology | DX: L40.50 Arthropathic psoriasis, unspecified (principal); Z79.899 Other long term (current) drug therapy | CPT/HCPCS: 86480; 86705; 86706; 86709; 86803; 87340 ==

== ENCOUNTER → 2022-04-05 09:05 | Outpatient (BNVA) | payer MEDICARE, MEDICAID, SELFPAY | PROVIDERS: PCP Family Medicine; Visit Provider Family Medicine | DX: I10 Essential (primary) hypertension (principal); E55.9 Vitamin D deficiency, unspecified; E11.9 Type 2 diabetes mellitus without complications; E78.5 Hyperlipidemia, unspecified | CPT/HCPCS: 80053; 80061; 82306; 83036; 85025 ==

== ENCOUNTER → 2022-07-20 10:37 | Outpatient (BNVA) | payer MEDICARE, MEDICAID, SELFPAY | PROVIDERS: PCP Family Medicine; Visit Provider Internal Medicine Cardiovascular Disease | DX: R06.02 Shortness of breath (principal); I10 Essential (primary) hypertension; J44.9 Chronic obstructive pulmonary disease, unspecified; E11.9 Type 2 diabetes mellitus without complications; Z79.84 Long term (current) use of oral hypoglycemic drugs; Z87.891 Personal history of nicotine dependence; E78.2 Mixed hyperlipidemia | CPT/HCPCS: 99213; 99214 ==

== ENCOUNTER → 2022-08-04 11:46 | Outpatient (BNVA) | payer MEDICARE, MEDICAID, SELFPAY | PROVIDERS: PCP Family Medicine; Visit Provider Nurse Practitioner Family | DX: R06.02 Shortness of breath (principal); H61.22 Impacted cerumen, left ear; I10 Essential (primary) hypertension | CPT/HCPCS: 71046; 80053; 83735; 83880; 85025 ==

== ENCOUNTER → 2022-08-11 11:25 | Outpatient (BNVA) | payer MEDICARE, MEDICAID, SELFPAY | PROVIDERS: PCP Family Medicine; Visit Provider Family Medicine | DX: E87.1 Hypo-osmolality and hyponatremia (principal); E83.42 Hypomagnesemia; E11.65 Type 2 diabetes mellitus with hyperglycemia; H66.92 Otitis media, unspecified, left ear; E11.9 Type 2 diabetes mellitus without complications; T78.40XA Allergy, unspecified, initial encounter | CPT/HCPCS: 80048; 83735 ==

== ENCOUNTER 2022-08-23 12:41 | Outpatient (CLI) | payer MEDICARE, MEDICAID, SELFPAY ==
--- NOTE | 2022-08-23 13:00 | CT_ITS ---
WS: [id number] LDCT LUNG CANCER SCREENING TECHNIQUE: Noncontrast CT of the chest with coronal and sagittal reformatted images. CLINICAL INFORMATION: Z87.891 - Personal history of nicotine dependence COMPARISON: CT August 23, 2021 DLP: 68.90 mGy.cm DIvol: Mean CTDIvol: 1.60 (mGy) All CT scans at [facility] use at least one of these dose optimization techniques: automat ed exposure control; mA and/or kV adjustment per patient size (includes targeted exams where dose is matched to clinical indication); or iterative reconstruction. FINDINGS: Partially calcified nodule or granuloma RIGHT upper lobe along the fissure measuring 5 mm. This appea rs new from 2020. Recommend 6 month follow-up. Incidental calcified granuloma LEFT upper lobe. Small noncalcified nodule along the LEFT lower lobe a t the fissure measuring 5 mm unchanged. Adjacent smaller nodule measuring 3 mm not definitely present previously. Aortic calcification. Coronary calcification. RIGHT thyroid nodule measuring 2.1 cm. No mediastinal o r hilar lymphadenopathy. No axillary lymphadenopathy. Prior cholecystectomy. Adrenal glands are normal. Small esophageal hiatal hernia. CT/CT lung screening [id number] IMPRESSION:Partially calcified nodule or granuloma RIGHT upper lobe along the f issure measuring 5 mm. This appears new from 2020. Recommend 6 month follow-up. LUNG-RADS: 3-Probably Benign FOLLOW UP: 6 Month LDCT
== END 2022-08-23 12:42 | disposition home or self-care (01) ==
LOC: RAD 12:43
PROVIDERS: PCP Family Medicine; Visit Provider Internal Medicine Pulmonary Disease
DX: Z12.2 Encounter for screening for malignant neoplasm of respiratory organs (principal); Z87.891 Personal history of nicotine dependence
CPT/HCPCS: 71271

== ENCOUNTER 2022-09-14 08:01 | Outpatient (CLI) | payer MEDICARE, MEDICAID, SELFPAY ==
--- NOTE | 2022-09-14 08:00 | USCV_ITS ---
Lisa Loyd Age: 77 Gender: F : 1945 Exam Date: 09/14/2022 08:31 Ordering Phys: Niranjan Castaneda MD ([email or web address]) Technologist: Tommy Kolb [place] [facility] [place]: Shortness of breath BP: 140 / 64 HR: 68 Rhythm: Sinus Technical Quality: Suboptimal MEASUREMENTS (Male / Female) Normal Values 2D ECHO LV Diastolic Diameter PLAX 3.9 cm 4.2 - 5.9 / 3.9 - 5.3 cm LV Systolic Diameter PLAX 2.3 cm IVS Diastolic Thickness 1.0 cm 0.6 - 1.0 / 0.6 - 0.9 cm IVS Systolic Thickness 1.3 cm LVPW Diastolic Thickness 1.4 cm 0.6 - 1.0 / 0.6 - 0.9 cm LVPW Systolic Thickness 1.6 cm LVOT Diameter 2.0 cm LV Ejection Fraction 2D Teich 73.3 % LV Ejection Fraction MOD 2C 61.9 % LV Ejection Fraction 2C AL 65.0 % LA Diameter 3.6 cm LA Width 3.2 cm LA Height 4.9 cm RA Width 2.7 cm RA Height 4.0 cm Aorta at Sinotubular Diameter 2.7 cm IVC Diameter 2.0 cm M-MODE Aortic Annulus Diameter 3.3 cm LA Ao Ratio MM 1.1 MV E Point Septal Separation 0.6 cm DOPPLER AV Peak Velocity 123.0 cm/s LVOT Peak Velocity 83.0 cm/s AV Area Cont Eq vti 2.4 cm squared AV Area Cont Eq pk 2.1 cm squared MV Peak Velocity 146.0 cm/s MV Area PHT 5.0 cm squared Mitral E to A Ratio 0.6 MV E' Velocity 42.0 cm/s Mitral E to MV E' Ratio 13.0 Mitral E to LV E' Lateral Ratio 15.2 Mitral E to LV E' Septal Ratio 11.5 TR Peak Velocity 257.1 cm/s TR Peak Gradient 26.4 mmHg TR Mean Velocity 201.7 cm/s TR Mean Gradient 17.6 mmHg TR Velocity Time Integral 74.8 cm Right Atrial Pressure 3.0 mmHg Pulmonary Artery Systolic Pressu 29.4 mmHg PV Peak Velocity 92.0 cm/s RV Acceleration Time 0.1 s RV Ejection Time 0.3 s RV AcT/ET 0.4 FINDINGS Left Ventricle Normal left ventricular cavity size. Normal left ventricular systolic function. Left ventricular ejection fraction is estimated at 65- 70 %. No regional wall motion abnormalities. Grade I diastolic dysfunction (abnormal relaxation filling pattern), normal to mildly elevated filling pressures. Right Ventricle Normal right ventricular size and systolic function. RVSP could not be calculated due to incomplete tricuspid regurgitation velocity profile. Right Atrium Normal right atrial size. Left Atrium Normal left atrial size. Mitral Valve Moderate mitral annular calcification. Thickened mitral valve. No mitral valve stenosis. Trace mitral valve regurgitation. Aortic Valve Structurally normal trileaflet aortic valve. No aortic valve stenosis. No aortic valve regurgitation. Tricuspid Valve Structurally normal tricuspid valve. Trace tricuspid valve regurgitation. Pulmonic Valve Pulmonic valve not well visualized. No pulmonary valve stenosis. Pericardium No pericardial effusion. Aorta Normal size aortic root and proximal ascending aorta. IVC Normal IVC dimension with >50% respiratory change of the inferior vena cava. CONCLUSIONS 1. Normal left ventricular cavity size and systolic function. Left ventricular ejection fraction is estimated at 65- 70 %. No regional wall motion abnormalities. Grade I diastolic dysfunction (abnormal relaxation filling pattern), normal to mildly elevated filling pressures. 2. Normal right ventricular size and systolic function. 3. No significant valvular abnormality. 4. No prior similar studies to compare. Ramona Lea MD (Electronically Signed) Final Date: 15 September 2022 09:57 S
== END 2022-09-14 08:02 | disposition home or self-care (01) ==
LOC: RAD 08:02
PROVIDERS: PCP Family Medicine; Visit Provider Internal Medicine Cardiovascular Disease
DX: R06.02 Shortness of breath (principal)
CPT/HCPCS: 93306

== ENCOUNTER → 2022-11-02 08:38 | Outpatient (BNVA) | payer MEDICARE, MEDICAID, SELFPAY | PROVIDERS: PCP Family Medicine; Visit Provider Family Medicine | DX: I10 Essential (primary) hypertension (principal); E87.5 Hyperkalemia; E55.9 Vitamin D deficiency, unspecified; E78.5 Hyperlipidemia, unspecified; E11.9 Type 2 diabetes mellitus without complications; M85.80 Other specified disorders of bone density and structure, unspecified site | CPT/HCPCS: 80053; 80061; 82306; 83036; 85025 ==

== ENCOUNTER → 2023-01-26 11:11 | Outpatient (BNVA) | payer MEDICARE, MEDICAID, SELFPAY | PROVIDERS: PCP Family Medicine; Visit Provider Family Medicine | DX: F41.9 Anxiety disorder, unspecified (principal); F32.9 Major depressive disorder, single episode, unspecified; I10 Essential (primary) hypertension; E78.5 Hyperlipidemia, unspecified; E87.1 Hypo-osmolality and hyponatremia; E11.9 Type 2 diabetes mellitus without complications; L40.0 Psoriasis vulgaris; Z79.899 Other long term (current) drug therapy | CPT/HCPCS: 80053; 80061; 83036; 84443; 85025; 86480; 86705; 86706; 86709; 86803; 87340; 87806 ==

== ENCOUNTER → 2023-02-21 13:38 | Outpatient (BNVA) | payer MEDICARE, MEDICAID, SELFPAY | PROVIDERS: PCP Family Medicine; Visit Provider Family Medicine | DX: R32 Unspecified urinary incontinence (principal); R60.9 Edema, unspecified | CPT/HCPCS: 81000 ==

== ENCOUNTER 2023-03-13 14:48 | Outpatient (CLI) | payer MEDICARE, MEDICAID, SELFPAY ==
--- NOTE | 2023-03-13 14:58 | CT_ITS ---
WS: [id number] CT chest wo con [id number] HISTORY: 6 month f/u lung nodule TECHNIQUE: Axial imaging performed through the thorax. Coronal and sagittal reformats are submitted. All CT scans at [facility] use at least one of these dose optimization techniques: automated exposure control; mA and/or kV adjustment per patient size (includes targeted exams where dose is mat ched to clinical indication); or iterative reconstruction. CONTRAST: None DLP: 497.04 mGy.cm COMPARISON: 08/23/2022 Lungs and central airway: Mild hyperexpansion from emphysema. No pneumonia. No change in the radius l ikely described nodules. 5 mm nodule along the RIGHT minor fissure is unchanged. Calcified granuloma in the lingula. There are additional 3 to 4 mm nodules in the LEFT lower lobe near the fissure. Subpl eural nodule medial RIGHT lower lobe is new measuring 4 mm. Pleura: Normal. No pleural effusion. Heart and pericardium: Normal size heart with no pericardial effusion. Mediastinum and vin: No mediastinum or hilar adenopathy. Vessels: Moderate atherosclerosis thoracic aorta. Extensive calcifications in the north fork coronary art eries. Chest wall and lower neck: Low-attenuation mass centered in the thyroid isthmus measures 3.2 x 2.0 cm . Appears greater in size than on 08/23/2022. Upper abdomen: Postsurgical changes along the anterior abdominal wall. Prior cholecystectomy. Osseous structures: No destructive process. CT/CT chest wo con [id number] IMPRESSION: 1. Multiple pulmonary nodules. These nodules are subcentimeter and noncalcifie d. No interval change since 08/23/2022. 2. Single new pleural nodule medial RIGHT lower lobe is 4 mm. 3. Recommend 6-[address] follow-up. 4. Extensive coronary artery calcifications. 5. Moderate sized thyroid nodule. Recommend follow-up thyroid ultrasound.
== END 2023-03-13 14:49 | disposition home or self-care (01) ==
LOC: RAD 14:50
PROVIDERS: PCP Family Medicine; Visit Provider Internal Medicine Pulmonary Disease
DX: R91.1 Solitary pulmonary nodule (principal); R91.8 Other nonspecific abnormal finding of lung field; E04.1 Nontoxic single thyroid nodule
CPT/HCPCS: 71250

== ENCOUNTER → 2023-03-17 12:20 | Outpatient (BNVA) | payer MEDICARE, MEDICAID, SELFPAY | PROVIDERS: PCP Family Medicine; Visit Provider Family Medicine | DX: E87.1 Hypo-osmolality and hyponatremia (principal) | CPT/HCPCS: 80048 ==

== ENCOUNTER → 2023-06-22 10:23 | Outpatient (BNVA) | payer MEDICARE, MEDICAID, SELFPAY | PROVIDERS: PCP Family Medicine; Visit Provider Family Medicine | DX: E11.9 Type 2 diabetes mellitus without complications (principal); E55.9 Vitamin D deficiency, unspecified; E78.5 Hyperlipidemia, unspecified; F41.9 Anxiety disorder, unspecified; I10 Essential (primary) hypertension | CPT/HCPCS: 80053; 80061; 82306; 82607; 83036; 84443 ==

== ENCOUNTER → 2023-08-16 12:24 | Outpatient (BNVA) | payer MEDICARE, MEDICAID, SELFPAY | PROVIDERS: PCP Family Medicine; Visit Provider Family Medicine | DX: M62.838 Other muscle spasm (principal) | CPT/HCPCS: 80053; 83735 ==

== ENCOUNTER 2023-09-12 10:18 | Outpatient (CLI) | payer MEDICARE, MEDICAID, SELFPAY ==
--- NOTE | 2023-09-12 10:21 | CT_ITS ---
WS: [id number] CT chest wo con [id number] HISTORY: lung nodules follow up TECHNIQUE: Axial imaging performed through the thorax. Coronal and sagittal reformats are submitted. All CT scans at [facility] use at least one of these dose optimization techniques: automated exposure control; mA and/or kV adjustment per patient size (includes targeted exams where dose is mat ched to clinical indication); or iterative reconstruction. CONTRAST: None DLP: 538.15 mGy.cm COMPARISON: 03/13/2023 and 08/23/2022 Lungs and central airway: Mild emphysema and prior granulomatous disease. Bilateral subcentimeter pul monary nodules are reidentified. There are 2 new pulmonary nodules. Slightly lobulated nodule measuri ng 4 mm in the anterior LEFT upper lobe image 15 series 4. New nodule adjacent to the LEFT fissure, i mage 24 of series 4.. This nodule is in the LEFT lower lobe measuring 4 mm also. The remaining nodule s are unchanged. Pleura: Normal. No pleural effusion. Heart and pericardium: Normal size heart with no pericardial effusion. Mediastinum and vin: No mediastinum or hilar adenopathy. Vessels: Moderate atherosclerosis aorta. Mildly enlarged pulmonary artery. Heavy calcification in the coronary arteries. Chest wall and lower neck: RIGHT thyroid nodule extending into the isthmus 2.4 x 1.8 cm. Upper abdomen: Prior cholecystectomy. Hepatic steatosis. Osseous structures: Increase in thoracic kyphosis. Disc spaces are narrowed. IMPRESSION: 1. Previously described subcentimeter pulmonary nodules are reidentified. These nodules have not incr eased in size. 2. There are 2 new LEFT pulmonary nodules measuring 4 mm. Consider reevaluation in 6 to [address] 3. Chronic emphysema. 4. RIGHT thyroid nodule 2.4 x 1.8 cm. Consider follow-up thyroid ultrasound.
== END 2023-09-12 10:19 | disposition home or self-care (01) ==
LOC: RAD 10:18
PROVIDERS: PCP Family Medicine; Visit Provider Internal Medicine Pulmonary Disease
DX: J43.9 Emphysema, unspecified; R91.8 Other nonspecific abnormal finding of lung field; E04.1 Nontoxic single thyroid nodule
CPT/HCPCS: 71250

== ENCOUNTER 2023-10-03 11:28 | Outpatient (CLI) | payer MEDICARE, MEDICAID, SELFPAY ==
--- NOTE | 2023-10-03 12:00 | US_ITS ---
WS: [id number] ULTRASOUND THYROID TECHNIQUE: Ultrasound of the thyroid. CLINICAL INFORMATION: Thyroid nodule COMPARISON: None. FINDINGS: 10 critical survey due to body habitus. Thyroid: Enlarged heterogeneous thyroid gland with multiple nodules bilaterally. Right thyroid lobe: 5.3 cm x 2.5 cm x 2.3 cm Largest nodule RIGHT inferior thyroid lobe measuring 3.1 x 2.3 x 3.5 cm Left thyroid lobe: 4.1 cm x 1.8 cm x 2.1 cm. Hypoechoic LEFT thyroid nodule in the mid thyroid measu ring 1.1 x 0.7 x 1.0 cm. Punctate calcifications. Isthmus: 0.7 mm. Cervical lymphadenopathy: None. IMPRESSION: 1. Enlarged heterogeneous thyroid gland with multiple nodules largest on the RIGHT. Findings suspici ous for multinodular goiter. 2. RIGHT inferior solid heterogeneous nodule measuring 3.1 x 2.3 x 3.5 cm. Recommend further evaluat ion with ultrasound-guided FNA. 3. Well-circumscribed hypoechoic LEFT ovoid nodule with small punctate calcifications. Nodule measur es 1.1 x 0.7 x 1.0 cm. Recommend 12-month follow-up. RIGHT INFERIOR THYROID NODULE TI-RADS Level TR4 Recommendations Moderately Suspicious: FNA if 1.5 cm; Follow if 1 cm at 1, 2, 3, and 5 y LEFT THYROID NODULE TI-RADS Level TR4 Recommendations Moderately Suspicious: FNA if 1.5 cm; Follow if 1 cm at 1, 2, 3, and 5 y
== END 2023-10-03 11:29 | disposition home or self-care (01) ==
LOC: RAD 11:28
PROVIDERS: PCP Family Medicine; Visit Provider Internal Medicine Pulmonary Disease
DX: E04.1 Nontoxic single thyroid nodule (principal)
CPT/HCPCS: 76536

== ENCOUNTER 2023-10-18 10:06 | Outpatient (CLI) | payer MEDICARE, MEDICAID, SELFPAY ==
--- NOTE | 2023-10-18 11:45 | US_ITS ---
WS: [id number] ULTRASOUND-GUIDED RIGHT THYROID NODULE FNA HISTORY: Right inferior thyroid nodule on ultrasound Procedure, risks, and complications were explained to the patient. Consent has been obtained. Comparison: Prior imaging study 10/03/2023 reviewed. Heterogeneous mass in the inferior RIGHT thyroid is targeted for biopsy. The skin is cleansed with ChloraPrep and anesthetized with 1% buffered lidocaine. FNA performed with 25 gauge needles. cardiology technologist is present to fix slides. IMPRESSION: Uncomplicated FNA of a RIGHT inferior thyroid nodule. Final pathology results pending.
== END 2023-10-18 10:07 | disposition home or self-care (01) ==
PROVIDERS: PCP Family Medicine; Visit Provider Family Medicine
DX: E04.1 Nontoxic single thyroid nodule (principal)
CPT/HCPCS: 10005; 88173

== ENCOUNTER → 2023-11-23 12:08 | Outpatient (BNVA) | payer MEDICARE, MEDICAID, SELFPAY | PROVIDERS: PCP Family Medicine; Visit Provider Family Medicine | DX: I10 Essential (primary) hypertension (principal); E78.5 Hyperlipidemia, unspecified; E11.9 Type 2 diabetes mellitus without complications; E55.9 Vitamin D deficiency, unspecified; E53.8 Deficiency of other specified B group vitamins; G47.00 Insomnia, unspecified; M85.80 Other specified disorders of bone density and structure, unspecified site; H61.20 Impacted cerumen, unspecified ear; Z23 Encounter for immunization; E78.2 Mixed hyperlipidemia; H61.23 Impacted cerumen, bilateral | CPT/HCPCS: 80053; 80061; 82306; 82607; 83036; 84443 ==

== ENCOUNTER → 2024-02-05 12:42 | Outpatient (BNVA) | payer MEDICARE, MEDICAID, SELFPAY | PROVIDERS: PCP Family Medicine; Visit Provider Dermatology | DX: L40.0 Psoriasis vulgaris (principal); D22.39 Melanocytic nevi of other parts of face; L82.1 Other seborrheic keratosis; D22.4 Melanocytic nevi of scalp and neck; D48.5 Neoplasm of uncertain behavior of skin; Z79.899 Other long term (current) drug therapy | CPT/HCPCS: 11102; 99213 ==

== ENCOUNTER 2024-02-13 11:11 | Outpatient (CLI) | payer MEDICARE, MEDICAID, SELFPAY ==
[2024-02-15 15:05] LABS: Quantiferon Mitogen 8.74 IU/mL; Quantiferon Nil 0.13 IU/mL; Quantiferon Plus TB1 0.03 IU/mL; Quantiferon Plus TB2 0.01 IU/mL; Quantiferon TB Gold NEGATIVE (NEGATIVE)
== END 2024-02-13 11:12 | disposition home or self-care (01) ==
LOC: LAB 11:13
PROVIDERS: PCP Family Medicine; Visit Provider Dermatology
DX: Z79.899 Other long term (current) drug therapy (principal); L40.0 Psoriasis vulgaris; D22.39 Melanocytic nevi of other parts of face; L82.1 Other seborrheic keratosis; D22.4 Melanocytic nevi of scalp and neck; D48.5 Neoplasm of uncertain behavior of skin
CPT/HCPCS: 36415; 86480

== ENCOUNTER → 2024-04-11 11:50 | Outpatient (BNVA) | payer MEDICARE, MEDICAID, SELFPAY | PROVIDERS: PCP Family Medicine; Visit Provider Family Medicine | DX: I10 Essential (primary) hypertension (principal); E78.2 Mixed hyperlipidemia; E11.9 Type 2 diabetes mellitus without complications; E53.8 Deficiency of other specified B group vitamins; E87.1 Hypo-osmolality and hyponatremia; F32.9 Major depressive disorder, single episode, unspecified; F41.9 Anxiety disorder, unspecified; R35.0 Frequency of micturition; G62.9 Polyneuropathy, unspecified; Z79.899 Other long term (current) drug therapy | CPT/HCPCS: 80053; 80061; 81000; 82607; 83036; 83721; 84443; 85025 ==

== ENCOUNTER → 2024-07-04 11:50 | Outpatient (BNVA) | payer MEDICARE, MEDICAID, SELFPAY | PROVIDERS: PCP Family Medicine; Visit Provider Family Medicine | DX: I10 Essential (primary) hypertension (principal); E11.9 Type 2 diabetes mellitus without complications; E78.2 Mixed hyperlipidemia | CPT/HCPCS: 80053; 80061; 83036; 84443; 85025 ==

== ENCOUNTER 2024-07-08 10:06 | Outpatient (CLI) | payer MEDICARE, MEDICAID, SELFPAY ==
--- NOTE | 2024-07-08 10:10 | XRR_ITS ---
PROCEDURE INFORMATION: Exam: XR Left Knee Exam date and time: 07/08/2024 10:17 AM Age: 79 years old Clinical indication: Bilateral; Patient HX: Knee pain x3 weeks, no specific injury, left knee hurts worse, pain on medial side of knees; Additional info: M25.569 - pain in unspecified knee TECHNIQUE: Imaging protocol: Radiologic exam of the left knee. Views: 3 views. COMPARISON: No relevant prior studies available. FINDINGS: Bones/joints: No acute fracture or malalignment. No worrisome lytic or blastic osseous lesion. No appreciable cortical erosion or periosteal reaction. Moderate degenerative changes in the medial compartment. Mild in the lateral and patellofemoral compartments. Chondrocalcinosis of the menisci, suggestive of underlying CPPD. Soft tissues: No acute soft tissue abnormality. XR/XR knee LT 3V* [id number] IMPRESSION: 1. No acute fracture or malaligment. 2. Moderate medial compartment osteoarthritis. Suspect underlying CPPD.
--- NOTE | 2024-07-08 10:10 | XRR_ITS ---
PROCEDURE INFORMATION: Exam: XR Right Knee Exam date and time: 07/08/2024 10:17 AM Age: 79 years old Clinical indication: Bilateral; Patient HX: Knee pain x3 weeks, no specific injury, right knee hurts worse, pain on medial side of knees; Additional info: M25.561 - pain in right knee TECHNIQUE: Imaging protocol: Radiologic exam of the right knee. Views: 3 views. COMPARISON: No relevant prior studies available. FINDINGS: Bones/joints: No acute fracture or malalignment. No worrisome lytic or blastic osseous lesion. No appreciable cortical erosion or periosteal reaction. Mild-moderate tricompartmental osteoarthritic changes. Chondrocalcinosis of the menisci, suggestive of underlying CPPD. Soft tissues: No acute soft tissue abnormality. XR/XR knee RT 3V* [id number] IMPRESSION: 1. No acute fracture or malaligment. 2. Mild to moderate osteoarthritis. Suspect underlying CPPD.
== END 2024-07-08 10:07 | disposition home or self-care (01) ==
LOC: RAD 10:07
PROVIDERS: PCP Family Medicine; Visit Provider Family Medicine
DX: M17.0 Bilateral primary osteoarthritis of knee (principal); M11.262 Other chondrocalcinosis, left knee; M11.261 Other chondrocalcinosis, right knee
CPT/HCPCS: 73562

== ENCOUNTER → 2024-08-05 13:04 | Outpatient (BNVA) | payer MEDICARE, MEDICAID, SELFPAY | PROVIDERS: PCP Family Medicine; Visit Provider Nurse Practitioner | DX: M17.0 Bilateral primary osteoarthritis of knee (principal) | CPT/HCPCS: 20610; 73560; 73565; 99204; J1100; J2795; J3301 ==

== ENCOUNTER → 2024-08-19 10:41 | Outpatient (BNVA) | payer MEDICARE, MEDICAID, SELFPAY | PROVIDERS: PCP Family Medicine; Visit Provider Nurse Practitioner | DX: M17.0 Bilateral primary osteoarthritis of knee (principal) | CPT/HCPCS: 20610; 99213; J1100; J2795; J3301 ==

== ENCOUNTER 2024-08-19 13:26 | Outpatient (CLI) | payer MEDICARE, MEDICAID, SELFPAY | END 2024-08-19 13:27 | disposition home or self-care (01) | LOC: SPT 13:27 | PROVIDERS: PCP Family Medicine; Visit Provider Nurse Practitioner | DX: Z46.89 Encounter for fitting and adjustment of other specified devices (principal); M17.0 Bilateral primary osteoarthritis of knee | CPT/HCPCS: 97760; L1812 ==

== ENCOUNTER → 2024-10-08 09:30 | Outpatient (BNVA) | payer MEDICARE, MEDICAID, SELFPAY | PROVIDERS: PCP Nurse Practitioner Family; Visit Provider Nurse Practitioner Family | DX: L40.0 Psoriasis vulgaris (principal); L85.3 Xerosis cutis; L82.1 Other seborrheic keratosis; L91.8 Other hypertrophic disorders of the skin | CPT/HCPCS: 99213 ==

== ENCOUNTER → 2024-10-24 11:12 | Outpatient (BNVA) | payer MEDICARE, MEDICAID, SELFPAY | PROVIDERS: PCP Nurse Practitioner Family; Visit Provider Nurse Practitioner Family | DX: M85.80 Other specified disorders of bone density and structure, unspecified site (principal); E11.9 Type 2 diabetes mellitus without complications; I10 Essential (primary) hypertension; F32.9 Major depressive disorder, single episode, unspecified; F41.9 Anxiety disorder, unspecified | CPT/HCPCS: 80053; 80061; 82306; 82607; 83036; 83735; 84443; 85025 ==

== ENCOUNTER → 2024-11-04 09:45 | Outpatient (BNVA) | payer MEDICARE, MEDICAID, SELFPAY | PROVIDERS: PCP Nurse Practitioner Family; Visit Provider Nurse Practitioner | DX: M17.0 Bilateral primary osteoarthritis of knee (principal) | CPT/HCPCS: 20610; 99213; J7318 ==

== ENCOUNTER 2025-02-03 14:40 | Outpatient (CLI) | payer MEDICARE, MEDICAID, SELFPAY | END 2025-02-03 14:41 | disposition home or self-care (01) | LOC: LAB 14:42 | PROVIDERS: PCP Nurse Practitioner Family; Visit Provider Nurse Practitioner Family | DX: L40.0 Psoriasis vulgaris (principal); L40.59 Other psoriatic arthropathy; Z79.899 Other long term (current) drug therapy; L71.8 Other rosacea | CPT/HCPCS: 20610; 36415; 86480; 99214; J7318 ==

== ENCOUNTER → 2025-02-13 11:34 | Outpatient (BNVA) | payer MEDICARE, MEDICAID, SELFPAY | PROVIDERS: PCP Nurse Practitioner Family; Visit Provider Nurse Practitioner Family | DX: E11.9 Type 2 diabetes mellitus without complications (principal) | CPT/HCPCS: 80053; 80061; 82306; 82607; 83036; 83721; 83735; 85025 ==

== ENCOUNTER → 2025-02-27 11:21 | Outpatient (BNVA) | payer MEDICARE, MEDICAID, SELFPAY | PROVIDERS: PCP Nurse Practitioner Family; Visit Provider Nurse Practitioner Family | DX: I10 Essential (primary) hypertension (principal) | CPT/HCPCS: 80048 ==

== ENCOUNTER → 2025-04-15 10:15 | Outpatient (BNVA) | payer MEDICARE, MEDICAID, SELFPAY | PROVIDERS: PCP Nurse Practitioner Family; Visit Provider Podiatrist Foot & Ankle Surgery | DX: E11.42 Type 2 diabetes mellitus with diabetic polyneuropathy (principal); L60.3 Nail dystrophy; G62.9 Polyneuropathy, unspecified; I73.9 Peripheral vascular disease, unspecified; Z79.4 Long term (current) use of insulin; Z79.84 Long term (current) use of oral hypoglycemic drugs; E11.49 Type 2 diabetes mellitus with other diabetic neurological complication | CPT/HCPCS: 11721; 99203 ==

== ENCOUNTER → 2025-04-21 11:39 | Outpatient (BNVA) | payer MEDICARE, MEDICAID, SELFPAY | PROVIDERS: PCP Nurse Practitioner Family; Visit Provider Nurse Practitioner | DX: M17.11 Unilateral primary osteoarthritis, right knee (principal) | CPT/HCPCS: 20610; 73560; 73565; 99214; J2795; J3301; J9999 ==

== ENCOUNTER → 2025-06-16 10:07 | Outpatient (BNVA) | payer MEDICARE, MEDICAID, SELFPAY | PROVIDERS: PCP Nurse Practitioner Family; Visit Provider Nurse Practitioner | DX: M17.11 Unilateral primary osteoarthritis, right knee (principal) | CPT/HCPCS: 20610; 99213; J7327 ==

== ENCOUNTER → 2025-06-17 10:57 | Outpatient (BNVA) | payer MEDICARE, MEDICAID, SELFPAY | PROVIDERS: PCP Nurse Practitioner Family; Visit Provider Podiatrist Foot & Ankle Surgery | DX: E11.42 Type 2 diabetes mellitus with diabetic polyneuropathy (principal); L60.3 Nail dystrophy; I73.9 Peripheral vascular disease, unspecified; I87.2 Venous insufficiency (chronic) (peripheral); R06.02 Shortness of breath; G62.9 Polyneuropathy, unspecified; Z79.4 Long term (current) use of insulin; Z79.84 Long term (current) use of oral hypoglycemic drugs | CPT/HCPCS: 11721; 99213 ==

== ENCOUNTER → 2025-06-26 12:00 | Outpatient (BNVA) | payer MEDICARE, MEDICAID, SELFPAY | PROVIDERS: PCP Nurse Practitioner Family; Visit Provider Nurse Practitioner Family | DX: E11.9 Type 2 diabetes mellitus without complications (principal); F32.9 Major depressive disorder, single episode, unspecified; F41.9 Anxiety disorder, unspecified; I10 Essential (primary) hypertension; M85.80 Other specified disorders of bone density and structure, unspecified site | CPT/HCPCS: 80053; 80061; 82306; 82607; 82728; 83036; 83735; 84443; 85025 ==

== ENCOUNTER 2025-07-01 09:20 | Outpatient (CLI) | payer MEDICARE, MEDICAID, SELFPAY ==
--- NOTE | 2025-07-01 09:30 | USR_ITS ---
PROCEDURE INFORMATION: Exam: US Duplex Lower Extremity Veins, Bilateral Exam date and time: 07/01/2025 9:28 AM Age: 80 years old Clinical indication: Condition or disease; Peripheral vascular disease; Additional info: Venous stasis TECHNIQUE: Imaging protocol: Real-time duplex ultrasound of the bilateral extremities with 2-D baker scale, color Doppler flow and spectral waveform analysis including responses to compression and other maneuvers (when performed) with image documentation. Complete exam focused on the lower extremity veins. COMPARISON: No relevant prior studies available. FINDINGS: Right deep veins: Unremarkable. The common femoral, femoral, proximal profunda femoral and popliteal veins are patent without thrombus. Normal Doppler waveforms. Normal compressibility and/or augmentation response. Left deep veins: Unremarkable. The common femoral, femoral, proximal profunda femoral and popliteal veins are patent without thrombus. Normal Doppler waveforms. Normal compressibility and/or augmentation response. Superficial veins: Greater saphenous veins at the saphenofemoral junctions are patent bilaterally without thrombus. Soft tissues: Unremarkable. US/CV bry dup insucindy [facility] [id number] IMPRESSION: No evidence of deep vein thrombosis.
== END 2025-07-01 09:21 | disposition home or self-care (01) ==
LOC: RAD 09:20
PROVIDERS: PCP Nurse Practitioner Family; Visit Provider Podiatrist Foot & Ankle Surgery
DX: R06.02 Shortness of breath (principal); I87.2 Venous insufficiency (chronic) (peripheral)
CPT/HCPCS: 93970

== ENCOUNTER 2025-07-04 12:38 | Outpatient (CLI) | payer MEDICARE, MEDICAID, SELFPAY ==
--- NOTE | 2025-07-04 12:45 | USR_ITS ---
PROCEDURE INFORMATION: Exam: US Duplex Bilateral Lower Extremity Arteries Exam date and time: 07/04/2025 12:50 PM Age: 80 years old Clinical indication: Condition or disease; Peripheral vascular disease; Additional info: Pad TECHNIQUE: Imaging protocol: Real-time ultrasound scan of the arteries of the bilateral lower extremities with 2-D baker scale, color Doppler flow and spectral waveform analysis. Images documented and saved. COMPARISON: [place] [id number] 07/01/2025 9:28 AM FINDINGS: Right common femoral artery: No occlusion or significant stenosis. Normal waveform. Right superficial femoral artery: No occlusion or significant stenosis. Normal waveform. Right popliteal artery: No occlusion or significant stenosis. Normal waveform. Right calf/foot arteries: No occlusion or significant stenosis in the visualized arteries. Normal waveforms. Dorsalis pedis artery is patent. Left common femoral artery: No occlusion or significant stenosis. Normal waveform. Left superficial femoral artery: No occlusion or significant stenosis. Normal waveform. Left popliteal artery: Peak systolic velocity 213 cm/sec. This falls in the range of 50-99% stenosis. Moderate spectral broadening. Left calf/foot arteries: No occlusion or significant stenosis in the visualized arteries. Normal waveforms. Dorsalis pedis artery is patent. US/[place] [id number] IMPRESSION: 50-99% stenosis left popliteal artery.
== END 2025-07-04 12:39 | disposition home or self-care (01) ==
LOC: RAD 12:39
PROVIDERS: PCP Nurse Practitioner Family; Visit Provider Podiatrist Foot & Ankle Surgery
DX: I73.9 Peripheral vascular disease, unspecified (principal); I70.202 Unspecified atherosclerosis of native arteries of extremities, left leg
CPT/HCPCS: 93925

== ENCOUNTER → 2025-07-07 15:21 | Outpatient (BNVA) | payer MEDICARE, MEDICAID, SELFPAY | PROVIDERS: PCP Nurse Practitioner Family; Visit Provider Nurse Practitioner Family | DX: N28.9 Disorder of kidney and ureter, unspecified (principal) | CPT/HCPCS: 80048 ==

== ENCOUNTER → 2025-07-09 15:03 | Outpatient (BNVA) | payer MEDICARE, MEDICAID, SELFPAY | PROVIDERS: PCP Nurse Practitioner Family; Visit Provider Nurse Practitioner Family | DX: R35.0 Frequency of micturition (principal) | CPT/HCPCS: 81000 ==

== ENCOUNTER → 2025-07-24 16:32 | Outpatient (BNVA) | payer MEDICARE, MEDICAID, SELFPAY | PROVIDERS: PCP Nurse Practitioner Family; Visit Provider Nurse Practitioner Family | DX: E87.5 Hyperkalemia (principal) | CPT/HCPCS: 80048 ==

== ENCOUNTER 2025-08-18 11:34 | Outpatient (CLI) | payer MEDICARE, MEDICAID, SELFPAY | END 2025-08-18 11:35 | disposition home or self-care (01) | LOC: SPT 11:34 | PROVIDERS: PCP Nurse Practitioner Family; Visit Provider Nurse Practitioner | DX: Z46.89 Encounter for fitting and adjustment of other specified devices (principal); M17.0 Bilateral primary osteoarthritis of knee | CPT/HCPCS: 20610; J1100; J2795; J3301; J9999; L1812 ==

== ENCOUNTER → 2025-08-28 09:55 | Outpatient (BNVA) | payer MEDICARE, MEDICAID, SELFPAY | PROVIDERS: PCP Nurse Practitioner Family; Visit Provider Podiatrist Foot & Ankle Surgery | DX: E11.42 Type 2 diabetes mellitus with diabetic polyneuropathy (principal); L60.3 Nail dystrophy; G62.9 Polyneuropathy, unspecified; I73.9 Peripheral vascular disease, unspecified; Z79.4 Long term (current) use of insulin; Z79.84 Long term (current) use of oral hypoglycemic drugs | CPT/HCPCS: 11721 ==

== ENCOUNTER → 2025-09-03 14:29 | Outpatient (BNVA) | payer MEDICARE, MEDICAID, SELFPAY | PROVIDERS: PCP Nurse Practitioner Family; Referring Provider Podiatrist Foot & Ankle Surgery; Visit Provider Internal Medicine Cardiovascular Disease | DX: I10 Essential (primary) hypertension (principal); I73.9 Peripheral vascular disease, unspecified; G62.9 Polyneuropathy, unspecified; J44.89 Other specified chronic obstructive pulmonary disease; G47.33 Obstructive sleep apnea (adult) (pediatric); I83.93 Asymptomatic varicose veins of bilateral lower extremities; Z87.891 Personal history of nicotine dependence; Z79.4 Long term (current) use of insulin; Z79.84 Long term (current) use of oral hypoglycemic drugs | CPT/HCPCS: 99204 ==

== ENCOUNTER → 2025-09-18 11:38 | Outpatient (BNVA) | payer MEDICARE, MEDICAID, SELFPAY | PROVIDERS: PCP Nurse Practitioner Family; Visit Provider Nurse Practitioner Family | DX: E87.5 Hyperkalemia (principal) | CPT/HCPCS: 80048 ==